=== PATIENT | male | born 1940 | race Caucasian/White ===

== ENCOUNTER 2017-12-28 17:54 | Inpatient (IN) ==
[2017-12-28] MEDS ORDERED: GLUCAGON 1 MG VIAL IM PRN (19:26)
[2017-12-28] MEDS ORDERED: DEXTROSE 50% 25 GM/50 ML VIAL IV PRN (19:26)
[2017-12-28] MEDS ORDERED: traZODone 50 MG TABLET PO PRN (19:26)
[2017-12-28] MEDS ORDERED: ONDANSETRON 4 MG/2 ML VIAL IV PRN (19:26)
[2017-12-28] MEDS ORDERED: SODIUM CHLORIDE 0.9% 1,000 ML IV PRN (21:44)
[2017-12-28] MEDS: INSULIN REGULAR 100 UNIT/ML SUBCUT SCH (23:19)
[2017-12-28] MEDS: VANCOMYCIN INJ 1,500 MG in SODIUM CHLORIDE 0.9% 500 ML IV SCH (23:26)
[2017-12-29] MEDS: PIPERACILLIN/TAZOBACTAM 3,375 MG in SODIUM CHLORIDE 0.9% 100 ML IV SCH ×2 (04:00→17:03)
[2017-12-29 06:33] LABS: Basophils % 0.3 % (0.0-0.8); Eosinophils # 0.2 10*3/uL (0.0-0.87); Hematocrit 28.4 VOL% (42.0-52.0); Hemoglobin 9.1 GM/DL (14.0-18.0); Immature Granulocytes % 0.6 %; Immature Granulocytes Absolute 0.06 #; Lymphocytes # 0.9 10*3/uL (1.4-4.0); Lymphocytes % 8.8 % (21.2-54.2); Mean Corpuscular Hemoglobin 27 PG (27-34); Mean Platelet Volume 10.3 FL (9.6-12.0); Monocytes # 1.1 10*3/uL (0.11-0.8); Monocytes % 10.2 % (1.7-12.7); Neutrophils # 8.2 10*3/uL (1.4-7.4); Neutrophils % 78.1 % (38.7-73.9); Platelet Count 170 T/CUMM (130-400); Red Blood Count 3.34 MC/CUMM (3.8-5.5); Red Cell Distribution Width 15.9 % (9.3-17.3); White Blood Count 10.5 T/CUMM (4-12)
[2017-12-29 06:43] LABS: INR 2.1
[2017-12-29 06:44] LABS: PT Patient Result 21.7 SECS
[2017-12-29 07:03] LABS: Albumin 2.4 G/DL (3.4-5.0); Bilirubin,Total 0.5 MG/DL (0.2-1.0); Calcium 6.8 MG/DL (8.5-10.1); Osmolality,Calculated 278.8 MOS/KG (273-304); Potassium 3.7 MMOL/L (3.5-5.1); Total Protein 6.7 G/DL (6.4-8.3)
[2017-12-29] MEDS: INSULIN REGULAR 100 UNIT/ML SUBCUT SCH ×4 (07:39→20:52)
[2017-12-29] MEDS ORDERED: fentaNYL 100 MCG/2 ML VIAL ONE (10:41)
[2017-12-29] MEDS ORDERED: ONDANSETRON 4 MG/2 ML VIAL ONE (10:41)
[2017-12-29] MEDS ORDERED: PROPOFOL 200 MG/20 ML VIAL IV ONE (10:41)
[2017-12-29] MEDS ORDERED: SEVOFLURANE 1 UNIT/15 MINUTE INH ONE (10:41)
[2017-12-29] MEDS: VANCOMYCIN INJ 1,500 MG in SODIUM CHLORIDE 0.9% 500 ML IV SCH ×2 (12:22→22:54)
[2017-12-29] MEDS ORDERED: FUROSEMIDE 40 MG/4 ML VIAL IV ONE (13:29)
[2017-12-29] MEDS: GABAPENTIN 600 MG TABLET PO SCH ×2 (14:17→20:51)
[2017-12-29] MEDS: WARFARIN 5 MG TABLET PO SCH (16:33)
[2017-12-29] MEDS: FAMOTIDINE 20 MG TABLET PO SCH (20:51)
[2017-12-29] MEDS: QUEtiapine 25 MG TABLET PO SCH (20:51)
[2017-12-29] MEDS: MONTELUKAST 10 MG TABLET PO SCH (20:51)
[2017-12-29] MEDS ORDERED: SODIUM CHLORIDE 0.9% 250 ML IV ONE (22:32)
[2017-12-30] MEDS: PIPERACILLIN/TAZOBACTAM 3,375 MG in SODIUM CHLORIDE 0.9% 100 ML IV SCH ×3 (01:30→16:36)
[2017-12-30 05:02] LABS: Basophils % 0.3 % (0.0-0.8); Eosinophils # 0.3 10*3/uL (0.0-0.87); Eosinophils % 2.7 % (0.00-10.9); Hematocrit 28.4 VOL% (42.0-52.0); Hemoglobin 8.8 GM/DL (14.0-18.0); Immature Granulocytes % 0.5 %; Immature Granulocytes Absolute 0.05 #; Lymphocytes # 1.1 10*3/uL (1.4-4.0); Lymphocytes % 11.1 % (21.2-54.2); Mean Corpuscular Hemoglobin 27 PG (27-34); Mean Corpuscular Volume 86.3 FL (87-102); Mean Platelet Volume 10.5 FL (9.6-12.0); Monocytes # 0.9 10*3/uL (0.11-0.8); Monocytes % 8.9 % (1.7-12.7); Neutrophils # 7.8 10*3/uL (1.4-7.4); Neutrophils % 76.5 % (38.7-73.9); Platelet Count 173 T/CUMM (130-400); Red Blood Count 3.29 MC/CUMM (3.8-5.5); Red Cell Distribution Width 15.8 % (9.3-17.3); White Blood Count 10.2 T/CUMM (4-12)
[2017-12-30 05:17] LABS: INR 2.2
[2017-12-30 05:21] LABS: INR 2.1
[2017-12-30 05:27] LABS: PT Patient Result 22.1 SECS; Partial Thromboplastin Time 60.1 SECS (0-40)
[2017-12-30 05:31] LABS: Calcium 6.7 MG/DL (8.5-10.1); Osmolality,Calculated 275.8 MOS/KG (273-304); Potassium 3.7 MMOL/L (3.5-5.1)
[2017-12-30 05:42] LABS: Calcium 6.6 MG/DL (8.5-10.1); Potassium 3.8 MMOL/L (3.5-5.1); Thyroid Stimulating Hormone 1.55 uIU/ml (0.358-3.74)
[2017-12-30] MEDS: SODIUM HYPOCHLORITE 0.25% IRRIG 473 ML BOTTLE TOP SCH (07:45)
[2017-12-30] MEDS: FLUTICASONE 50 MCG NASAL SPRAY 16 GM BOTTLE BOTH NARES SCH (09:26)
[2017-12-30] MEDS: INSULIN REGULAR 100 UNIT/ML SUBCUT SCH ×4 (09:27→20:29)
[2017-12-30] MEDS: DULoxetine 30 MG CAPSULE PO SCH (09:28)
[2017-12-30] MEDS: GABAPENTIN 600 MG TABLET PO SCH ×3 (09:28→20:28)
[2017-12-30] MEDS: FAMOTIDINE 20 MG TABLET PO SCH ×2 (09:29→20:28)
[2017-12-30] MEDS ORDERED: MAGNESIUM SULF RIDER 2 GM in PREMIX 1 EACH IV ONE (09:50)
[2017-12-30] MEDS: methIMAzole 10 MG TABLET PO SCH (13:10)
[2017-12-30] MEDS: PANTOPRAZOLE 40 MG TABLET PO SCH (13:11)
[2017-12-30] MEDS: VANCOMYCIN INJ 1,500 MG in SODIUM CHLORIDE 0.9% 500 ML IV SCH ×2 (13:13→23:02)
[2017-12-30] MEDS: WARFARIN 5 MG TABLET PO SCH (15:03)
[2017-12-30] MEDS ORDERED: MAGNESIUM SULF RIDER 4 GM in PREMIX 1 EACH IV PRN (17:02)
[2017-12-30] MEDS: QUEtiapine 25 MG TABLET PO SCH (20:28)
[2017-12-30] MEDS: MONTELUKAST 10 MG TABLET PO SCH (20:28)
[2017-12-30] MEDS ORDERED: ENOXAPARIN 40 MG/0.4 ML SYRINGE SUBCUT SCH (21:00)
[2017-12-31] MEDS: PIPERACILLIN/TAZOBACTAM 3,375 MG in SODIUM CHLORIDE 0.9% 100 ML IV SCH ×3 (01:02→16:29)
[2017-12-31 04:47] LABS: Basophils % 0.4 % (0.0-0.8); Eosinophils # 0.3 10*3/uL (0.0-0.87); Eosinophils % 3.3 % (0.00-10.9); Hematocrit 28.7 VOL% (42.0-52.0); Hemoglobin 8.9 GM/DL (14.0-18.0); INR 1.9; Immature Granulocytes % 0.7 %; Immature Granulocytes Absolute 0.07 #; Lymphocytes # 1.1 10*3/uL (1.4-4.0); Lymphocytes % 10.5 % (21.2-54.2); Mean Corpuscular Hemoglobin 27 PG (27-34); Mean Platelet Volume 10.6 FL (9.6-12.0); Monocytes # 0.8 10*3/uL (0.11-0.8); Monocytes % 7.6 % (1.7-12.7); Neutrophils # 7.7 10*3/uL (1.4-7.4); Neutrophils % 77.5 % (38.7-73.9); PT Patient Result 19.4 SECS; Platelet Count 158 T/CUMM (130-400); Red Cell Distribution Width 15.9 % (9.3-17.3)
[2017-12-31 05:05] LABS: Calcium 6.1 MG/DL (8.5-10.1); Osmolality,Calculated 275.8 MOS/KG (273-304); Potassium 3.7 MMOL/L (3.5-5.1)
[2017-12-31] MEDS: GABAPENTIN 600 MG TABLET PO SCH ×3 (09:10→21:23)
[2017-12-31] MEDS: FLUTICASONE 50 MCG NASAL SPRAY 16 GM BOTTLE BOTH NARES SCH (09:10)
[2017-12-31] MEDS: DULoxetine 30 MG CAPSULE PO SCH (09:11)
[2017-12-31] MEDS: FAMOTIDINE 20 MG TABLET PO SCH ×2 (09:11→21:23)
[2017-12-31] MEDS: INSULIN REGULAR 100 UNIT/ML SUBCUT SCH ×4 (09:11→21:23)
[2017-12-31] MEDS: methIMAzole 10 MG TABLET PO SCH (09:11)
[2017-12-31] MEDS: SODIUM HYPOCHLORITE 0.25% IRRIG 473 ML BOTTLE TOP SCH (11:30)
[2017-12-31] MEDS: VANCOMYCIN INJ 1,500 MG in SODIUM CHLORIDE 0.9% 500 ML IV SCH ×2 (12:16→23:07)
[2017-12-31] MEDS: PANTOPRAZOLE 40 MG TABLET PO SCH (12:17)
[2017-12-31] MEDS: QUEtiapine 25 MG TABLET PO SCH (21:23)
[2017-12-31] MEDS: MONTELUKAST 10 MG TABLET PO SCH (21:23)
[2018-01-01] MEDS: PIPERACILLIN/TAZOBACTAM 3,375 MG in SODIUM CHLORIDE 0.9% 100 ML IV SCH ×3 (00:55→16:21)
[2018-01-01 05:58] LABS: Basophils % 0.2 % (0.0-0.8); Eosinophils # 0.3 10*3/uL (0.0-0.87); Eosinophils % 3.6 % (0.00-10.9); Hematocrit 29.5 VOL% (42.0-52.0); Hemoglobin 9.3 GM/DL (14.0-18.0); Immature Granulocytes % 0.5 %; Immature Granulocytes Absolute 0.05 #; Lymphocytes % 11.2 % (21.2-54.2); Mean Corpuscular HGB Conc 31.5 GM/DL (32-36); Mean Corpuscular Hemoglobin 27 PG (27-34); Mean Corpuscular Volume 86.3 FL (87-102); Mean Platelet Volume 10.2 FL (9.6-12.0); Monocytes # 0.7 10*3/uL (0.11-0.8); Monocytes % 7.1 % (1.7-12.7); Neutrophils # 7.1 10*3/uL (1.4-7.4); Neutrophils % 77.4 % (38.7-73.9); Platelet Count 181 T/CUMM (130-400); Red Blood Count 3.42 MC/CUMM (3.8-5.5); Red Cell Distribution Width 15.9 % (9.3-17.3); White Blood Count 9.2 T/CUMM (4-12)
[2018-01-01 06:12] LABS: INR 1.6; PT Patient Result 16.4 SECS
[2018-01-01 06:25] LABS: Calcium 6.7 MG/DL (8.5-10.1); Osmolality,Calculated 278.7 MOS/KG (273-304); Potassium 4.2 MMOL/L (3.5-5.1)
[2018-01-01] MEDS ORDERED: DEXTROSE 50% 25 GM/50 ML VIAL IV PRN (07:33)
[2018-01-01] MEDS ORDERED: GLUCAGON 1 MG VIAL IM PRN (07:33)
[2018-01-01] MEDS: INSULIN REGULAR 100 UNIT/ML SUBCUT SCH ×4 (09:46→21:22)
[2018-01-01] MEDS: FLUTICASONE 50 MCG NASAL SPRAY 16 GM BOTTLE BOTH NARES SCH (09:50)
[2018-01-01] MEDS: methIMAzole 10 MG TABLET PO SCH (10:01)
[2018-01-01] MEDS: GABAPENTIN 600 MG TABLET PO SCH ×3 (10:02→21:28)
[2018-01-01] MEDS: FAMOTIDINE 20 MG TABLET PO SCH ×2 (10:02→21:28)
[2018-01-01] MEDS: DULoxetine 30 MG CAPSULE PO SCH (10:02)
[2018-01-01] MEDS: SODIUM HYPOCHLORITE 0.25% IRRIG 473 ML BOTTLE TOP SCH (10:03)
[2018-01-01] MEDS: ENOXAPARIN 40 MG/0.4 ML SYRINGE SUBCUT SCH (12:26)
[2018-01-01] MEDS: PANTOPRAZOLE 40 MG TABLET PO SCH (12:26)
[2018-01-01] MEDS: VANCOMYCIN INJ 1,500 MG in SODIUM CHLORIDE 0.9% 500 ML IV SCH ×2 (14:38→16:21)
[2018-01-01] MEDS: QUEtiapine 25 MG TABLET PO SCH (21:28)
[2018-01-01] MEDS: MONTELUKAST 10 MG TABLET PO SCH (21:28)
[2018-01-01] MEDS: ACETYLCYSTEINE 600 MG CAPSULE PO SCH (21:28)
[2018-01-02] MEDS: PIPERACILLIN/TAZOBACTAM 3,375 MG in SODIUM CHLORIDE 0.9% 100 ML IV SCH ×2 (07:03→10:31)
[2018-01-02] MEDS: INSULIN REGULAR 100 UNIT/ML SUBCUT SCH ×4 (08:33→22:31)
[2018-01-02] MEDS: SODIUM CHLORIDE 0.9% 1,000 ML IV SCH ×2 (09:36→10:32)
[2018-01-02] MEDS: methIMAzole 10 MG TABLET PO SCH (10:30)
[2018-01-02] MEDS: DULoxetine 30 MG CAPSULE PO SCH (10:30)
[2018-01-02] MEDS: GABAPENTIN 600 MG TABLET PO SCH ×3 (10:30→22:30)
[2018-01-02] MEDS: FAMOTIDINE 20 MG TABLET PO SCH ×2 (10:30→22:31)
[2018-01-02] MEDS: ACETYLCYSTEINE 600 MG CAPSULE PO SCH ×2 (10:30→22:31)
[2018-01-02] MEDS: FLUTICASONE 50 MCG NASAL SPRAY 16 GM BOTTLE BOTH NARES SCH (10:31)
[2018-01-02] MEDS: ENOXAPARIN 40 MG/0.4 ML SYRINGE SUBCUT SCH (10:31)
[2018-01-02] MEDS: VANCOMYCIN INJ 1,500 MG in SODIUM CHLORIDE 0.9% 500 ML IV SCH (10:32)
[2018-01-02] MEDS: SODIUM HYPOCHLORITE 0.25% IRRIG 473 ML BOTTLE TOP SCH (11:49)
[2018-01-02] MEDS: PANTOPRAZOLE 40 MG TABLET PO SCH (11:50)
[2018-01-02] MEDS ORDERED: CLINDAMYCIN INJ 900 MG in PREMIX 1 EACH IV ONE (12:07)
[2018-01-02] MEDS: cefTRIAXone 1,000 MG in SYRINGE 1 EACH IV SCH (15:50)
[2018-01-02] MEDS: AMPICILLIN/SULBACTAM 1,500 MG in SODIUM CHLORIDE 0.9% 100 ML IV SCH ×2 (15:55→22:37)
[2018-01-02] MEDS: MONTELUKAST 10 MG TABLET PO SCH (22:30)
[2018-01-02] MEDS: QUEtiapine 25 MG TABLET PO SCH (22:31)
[2018-01-03] MEDS: AMPICILLIN/SULBACTAM 1,500 MG in SODIUM CHLORIDE 0.9% 100 ML IV SCH ×4 (05:18→21:10)
[2018-01-03 06:31] LABS: Basophils % 0.4 % (0.0-0.8); Eosinophils # 0.3 10*3/uL (0.0-0.87); Eosinophils % 4.1 % (0.00-10.9); Hematocrit 28.1 VOL% (42.0-52.0); Hemoglobin 9.1 GM/DL (14.0-18.0); Immature Granulocytes % 0.4 %; Immature Granulocytes Absolute 0.03 #; Lymphocytes # 0.8 10*3/uL (1.4-4.0); Lymphocytes % 10.7 % (21.2-54.2); Mean Corpuscular HGB Conc 32.4 GM/DL (32-36); Mean Corpuscular Hemoglobin 27 PG (27-34); Mean Corpuscular Volume 84.4 FL (87-102); Mean Platelet Volume 10.3 FL (9.6-12.0); Monocytes # 0.5 10*3/uL (0.11-0.8); Monocytes % 7.2 % (1.7-12.7); Neutrophils # 5.6 10*3/uL (1.4-7.4); Neutrophils % 77.2 % (38.7-73.9); Platelet Count 209 T/CUMM (130-400); Red Blood Count 3.33 MC/CUMM (3.8-5.5); Red Cell Distribution Width 15.6 % (9.3-17.3); White Blood Count 7.3 T/CUMM (4-12)
[2018-01-03 06:39] LABS: INR 1.4; PT Patient Result 14.1 SECS
[2018-01-03 06:40] LABS: Partial Thromboplastin Time 42.1 SECS (0-40)
[2018-01-03] MEDS ORDERED: HEPARIN/NACL 0.9% 2 UNITS/ML 500 ML IV ONE ×2 (06:41→15:44)
[2018-01-03 06:54] LABS: Calcium 7.4 MG/DL (8.5-10.1); Osmolality,Calculated 277.5 MOS/KG (273-304); Potassium 3.5 MMOL/L (3.5-5.1)
[2018-01-03] MEDS: INSULIN REGULAR 100 UNIT/ML SUBCUT SCH ×4 (08:18→21:10)
[2018-01-03] MEDS: SODIUM CHLORIDE 0.9% 1,000 ML IV SCH ×3 (08:18→17:18)
[2018-01-03] MEDS ORDERED: ceFAZolin 1,000 MG VIAL ONE (08:28)
[2018-01-03] MEDS ORDERED: HEPARIN 5,000 UNIT/1 ML VIAL ONE (08:28)
[2018-01-03] MEDS ORDERED: THROMBIN TOPICAL (RECOMBINANT) 5,000 UNIT VIAL TOP ONE (08:28)
[2018-01-03] MEDS ORDERED: NITROGLYCERIN DRIP 0 MG/0 ML BOTTLE IV ONE (09:00)
[2018-01-03] MEDS ORDERED: CLINDAMYCIN INJ 50 ML IV ONE (09:07)
[2018-01-03] MEDS ORDERED: CLINDAMYCIN INJ 900 MG in PREMIX 1 EACH IV ONE (10:00)
[2018-01-03] MEDS: SODIUM HYPOCHLORITE 0.25% IRRIG 473 ML BOTTLE TOP SCH (11:39)
[2018-01-03] MEDS: DULoxetine 30 MG CAPSULE PO SCH (11:39)
[2018-01-03] MEDS: GABAPENTIN 600 MG TABLET PO SCH ×3 (11:40→21:10)
[2018-01-03] MEDS: methIMAzole 10 MG TABLET PO SCH (11:40)
[2018-01-03] MEDS: FLUTICASONE 50 MCG NASAL SPRAY 16 GM BOTTLE BOTH NARES SCH (11:40)
[2018-01-03] MEDS: FAMOTIDINE 20 MG TABLET PO SCH ×2 (11:40→21:10)
[2018-01-03] MEDS: ACETYLCYSTEINE 600 MG CAPSULE PO SCH (11:40)
[2018-01-03] MEDS: ENOXAPARIN 40 MG/0.4 ML SYRINGE SUBCUT SCH (11:41)
[2018-01-03 13:41] LABS: ABG Base Excess 4.7 MMOL/L (-2.5-2.5); ABG HCO3 28.7 MMOL/L (20-26); ABG Oxygen Saturation 99.5 % (95-100); ABG PCO2 40.2 MM HG (35-48); ABG PH 7.463 (7.35-7.45); ABG TCO2 26.4 MMOL/L (23-27)
[2018-01-03] MEDS: PANTOPRAZOLE 40 MG TABLET PO SCH (13:59)
[2018-01-03] MEDS ORDERED: MIDAZOLAM 2 MG/2 ML VIAL ONE (14:02)
[2018-01-03] MEDS ORDERED: fentaNYL 100 MCG/2 ML VIAL ONE (14:02)
[2018-01-03 15:31] LABS: Apearance,Urine CLEAR (Clear); Bacteria,Urine Occasional /HPF (Few); Bilirubin,Urine Negative (Negative); Blood, Urine Negative (Negative); Glucose,Urine (UA) Negative (Negative); Hyaline Casts,Urine 1 /LPF (0-3); Ketones,Urine 5 mg/dL (Negative); Mucus,Urine Occasional /LPF (Occasional); Nitrite,Urine Negative (Negative); Protein,Urine Negative; RBC,Urine 1 /HPF (0-4); Urine Color Straw (Yellow); Urine Specific Gravity 1.005 (1.001-1.035); Urine Urobilinogen < 2.0 EU/DL (0.2-1.0); WBC,Urine <1 /HPF (0-6)
[2018-01-03] MEDS ORDERED: HEPARIN 10,000 UNIT/10 ML VIAL ONE (15:44)
[2018-01-03] MEDS ORDERED: SEVOFLURANE 1 UNIT/15 MINUTE INH ONE (15:44)
[2018-01-03] MEDS ORDERED: ETOMIDATE 40 MG/20 ML VIAL IV ONE (15:45)
[2018-01-03] MEDS ORDERED: SODIUM CHLORIDE 0.9% 100 ML IV ONE (15:45)
[2018-01-03] MEDS ORDERED: PHENYLEPHRINE 10 MG/1 ML VIAL IV ONE (15:45)
[2018-01-03] MEDS ORDERED: LACTATED RINGERS 1,000 ML IV ONE (15:45)
[2018-01-03] MEDS ORDERED: ROCURONIUM 100 MG/10 ML VIAL IV ONE (15:45)
[2018-01-03 16:13] LABS: ABG Base Excess 5.2 MMOL/L (-2.5-2.5); ABG HCO3 29.1 MMOL/L (20-26); ABG PCO2 46.6 MM HG (35-48); ABG PH 7.421 (7.35-7.45); ABG PO2 78.7 MM HG (80-95); Glucose Heart Surgery 209 MG/DL (74-106); Hematocrit Heart Surgery 27.4 PERCENT (42-52); Hemoglobin Heart Surgery 8.8 G/DL (14.0-18.0); Potassium Heart/CVR 3.5 MMOL/L (3.5-5.1)
[2018-01-03] MEDS: cefTRIAXone 1,000 MG in SYRINGE 1 EACH IV SCH (17:37)
[2018-01-03] MEDS: MAGNESIUM SULF RIDER 2 GM in PREMIX 1 EACH IV PRN (17:37)
[2018-01-03 17:51] LABS: Basophils % 0.3 % (0.0-0.8); Eosinophils # 0.2 10*3/uL (0.0-0.87); Eosinophils % 1.6 % (0.00-10.9); Hematocrit 27.6 VOL% (42.0-52.0); Hemoglobin 8.8 GM/DL (14.0-18.0); Immature Granulocytes % 0.5 %; Immature Granulocytes Absolute 0.05 #; Lymphocytes # 0.8 10*3/uL (1.4-4.0); Lymphocytes % 7.1 % (21.2-54.2); Mean Corpuscular HGB Conc 31.9 GM/DL (32-36); Mean Corpuscular Hemoglobin 27 PG (27-34); Mean Corpuscular Volume 85.7 FL (87-102); Mean Platelet Volume 10.5 FL (9.6-12.0); Monocytes # 0.6 10*3/uL (0.11-0.8); Neutrophils # 9.4 10*3/uL (1.4-7.4); Neutrophils % 85.5 % (38.7-73.9); Platelet Count 218 T/CUMM (130-400); Red Blood Count 3.22 MC/CUMM (3.8-5.5); Red Cell Distribution Width 15.6 % (9.3-17.3)
[2018-01-03 18:13] LABS: Calcium 7.3 MG/DL (8.5-10.1); Osmolality,Calculated 275.8 MOS/KG (273-304); Potassium 3.6 MMOL/L (3.5-5.1)
[2018-01-03] MEDS: MONTELUKAST 10 MG TABLET PO SCH (21:10)
[2018-01-03] MEDS: QUEtiapine 25 MG TABLET PO SCH (21:10)
[2018-01-03] MEDS ORDERED: SODIUM CHLORIDE 0.9% 1,000 ML IV PRN (22:13)
[2018-01-03] MEDS ORDERED: SODIUM CHLORIDE 0.9% 500 ML IV ONE (22:13)
[2018-01-04] MEDS: SODIUM CHLORIDE 0.9% 1,000 ML IV SCH ×3 (00:30→08:45)
[2018-01-04] MEDS: AMPICILLIN/SULBACTAM 1,500 MG in SODIUM CHLORIDE 0.9% 100 ML IV SCH ×4 (03:35→21:34)
[2018-01-04 04:57] LABS: Basophils % 0.4 % (0.0-0.8); Eosinophils # 0.3 10*3/uL (0.0-0.87); Eosinophils % 3.2 % (0.00-10.9); Hematocrit 27.8 VOL% (42.0-52.0); Hemoglobin 8.8 GM/DL (14.0-18.0); Immature Granulocytes % 0.6 %; Immature Granulocytes Absolute 0.05 #; Lymphocytes # 0.9 10*3/uL (1.4-4.0); Lymphocytes % 10.6 % (21.2-54.2); Mean Corpuscular HGB Conc 31.7 GM/DL (32-36); Mean Corpuscular Hemoglobin 28 PG (27-34); Mean Corpuscular Volume 87.4 FL (87-102); Mean Platelet Volume 10.5 FL (9.6-12.0); Monocytes # 0.6 10*3/uL (0.11-0.8); Monocytes % 7.7 % (1.7-12.7); Neutrophils # 6.3 10*3/uL (1.4-7.4); Neutrophils % 77.5 % (38.7-73.9); Platelet Count 199 T/CUMM (130-400); Red Blood Count 3.18 MC/CUMM (3.8-5.5); Red Cell Distribution Width 15.2 % (9.3-17.3); White Blood Count 8.1 T/CUMM (4-12)
[2018-01-04 05:28] LABS: Calcium 6.9 MG/DL (8.5-10.1); Osmolality,Calculated 280.4 MOS/KG (273-304); Potassium 3.4 MMOL/L (3.5-5.1)
[2018-01-04] MEDS: MAGNESIUM SULF RIDER 2 GM in PREMIX 1 EACH IV PRN (06:03)
[2018-01-04] MEDS: INSULIN REGULAR 100 UNIT/ML SUBCUT SCH ×4 (08:38→21:33)
[2018-01-04] MEDS: FAMOTIDINE 20 MG TABLET PO SCH ×2 (08:39→21:29)
[2018-01-04] MEDS: DULoxetine 30 MG CAPSULE PO SCH (08:39)
[2018-01-04] MEDS: GABAPENTIN 600 MG TABLET PO SCH ×3 (08:39→21:29)
[2018-01-04] MEDS: FLUTICASONE 50 MCG NASAL SPRAY 16 GM BOTTLE BOTH NARES SCH (08:40)
[2018-01-04] MEDS: methIMAzole 10 MG TABLET PO SCH (08:40)
[2018-01-04] MEDS ORDERED: GLUCAGON 1 MG VIAL IM PRN (08:57)
[2018-01-04] MEDS ORDERED: DEXTROSE 50% 25 GM/50 ML VIAL IV PRN (08:57)
[2018-01-04] MEDS: POTASSIUM CHLORIDE 20 MEQ TABLET PO PRN ×2 (10:02→11:42)
[2018-01-04] MEDS: SODIUM HYPOCHLORITE 0.25% IRRIG 473 ML BOTTLE TOP SCH (10:45)
[2018-01-04] MEDS: ENOXAPARIN 40 MG/0.4 ML SYRINGE SUBCUT SCH (10:48)
[2018-01-04] MEDS: METOPROLOL TARTRATE 25 MG TABLET PO SCH ×2 (10:48→22:34)
[2018-01-04] MEDS: PANTOPRAZOLE 40 MG TABLET PO SCH (11:42)
[2018-01-04] MEDS: cefTRIAXone 1,000 MG in SYRINGE 1 EACH IV SCH (15:44)
[2018-01-04] MEDS: CLOPIDOGREL 75 MG TABLET PO SCH (15:44)
[2018-01-04] MEDS: POTASSIUM CHLORIDE 20 MEQ TABLET PO SCH ×2 (15:44→21:32)
[2018-01-04] MEDS: MAGNESIUM GLUCONATE 500 MG TABLET PO SCH (18:29)
[2018-01-04] MEDS: QUEtiapine 25 MG TABLET PO SCH (21:29)
[2018-01-04] MEDS: MONTELUKAST 10 MG TABLET PO SCH (21:29)
[2018-01-05] MEDS: AMPICILLIN/SULBACTAM 1,500 MG in SODIUM CHLORIDE 0.9% 100 ML IV SCH ×5 (03:13→22:53)
[2018-01-05] MEDS: INSULIN REGULAR 100 UNIT/ML SUBCUT SCH ×4 (08:47→22:52)
[2018-01-05] MEDS: FAMOTIDINE 20 MG TABLET PO SCH ×2 (08:48→22:53)
[2018-01-05] MEDS: CLOPIDOGREL 75 MG TABLET PO SCH (08:48)
[2018-01-05] MEDS: METOPROLOL TARTRATE 25 MG TABLET PO SCH ×2 (08:48→22:53)
[2018-01-05] MEDS: GABAPENTIN 600 MG TABLET PO SCH ×3 (08:49→22:52)
[2018-01-05] MEDS: MAGNESIUM GLUCONATE 500 MG TABLET PO SCH (08:49)
[2018-01-05] MEDS: DULoxetine 30 MG CAPSULE PO SCH (08:49)
[2018-01-05] MEDS: methIMAzole 10 MG TABLET PO SCH (08:50)
[2018-01-05] MEDS: POTASSIUM CHLORIDE 20 MEQ TABLET PO SCH ×2 (08:50→22:52)
[2018-01-05] MEDS: FLUTICASONE 50 MCG NASAL SPRAY 16 GM BOTTLE BOTH NARES SCH (08:51)
[2018-01-05] MEDS ORDERED: AMPICILLIN/SULBACTAM 1,500 MG VIAL IM SCH (10:30)
[2018-01-05] MEDS ORDERED: AMPICILLIN/SULBACTAM 1,500 MG VIAL IV SCH (10:42)
[2018-01-05] MEDS: PANTOPRAZOLE 40 MG TABLET PO SCH (11:15)
[2018-01-05] MEDS: ENOXAPARIN 40 MG/0.4 ML SYRINGE SUBCUT SCH (11:17)
[2018-01-05] MEDS: VANCOMYCIN INJ 1,500 MG in SODIUM CHLORIDE 0.9% 500 ML IV SCH (12:38)
[2018-01-05] MEDS: WARFARIN 5 MG TABLET PO SCH (16:10)
[2018-01-05] MEDS: ACETAMINOPHEN 325 MG TABLET PO PRN (18:02)
[2018-01-05] MEDS: MONTELUKAST 10 MG TABLET PO SCH (22:52)
[2018-01-05] MEDS: QUEtiapine 25 MG TABLET PO SCH (22:53)
[2018-01-06] MEDS: VANCOMYCIN INJ 1,500 MG in SODIUM CHLORIDE 0.9% 500 ML IV SCH ×2 (00:20→14:18)
[2018-01-06 05:41] LABS: Osmolality,Calculated 278.8 MOS/KG (273-304); Potassium 4.1 MMOL/L (3.5-5.1)
[2018-01-06 05:44] LABS: INR 1.2; PT Patient Result 12.6 SECS
[2018-01-06] MEDS: AMPICILLIN/SULBACTAM 1,500 MG in SODIUM CHLORIDE 0.9% 100 ML IV SCH ×4 (05:54→23:55)
[2018-01-06] MEDS: INSULIN REGULAR 100 UNIT/ML SUBCUT SCH ×4 (09:51→20:58)
[2018-01-06] MEDS: DULoxetine 30 MG CAPSULE PO SCH (09:53)
[2018-01-06] MEDS: FAMOTIDINE 20 MG TABLET PO SCH ×2 (09:53→20:54)
[2018-01-06] MEDS: methIMAzole 10 MG TABLET PO SCH (09:53)
[2018-01-06] MEDS: MAGNESIUM GLUCONATE 500 MG TABLET PO SCH (09:54)
[2018-01-06] MEDS: FLUTICASONE 50 MCG NASAL SPRAY 16 GM BOTTLE BOTH NARES SCH (09:54)
[2018-01-06] MEDS: POTASSIUM CHLORIDE 20 MEQ TABLET PO SCH ×2 (09:55→20:55)
[2018-01-06] MEDS: GABAPENTIN 600 MG TABLET PO SCH ×3 (09:55→20:54)
[2018-01-06] MEDS: METOPROLOL TARTRATE 25 MG TABLET PO SCH ×2 (09:55→20:55)
[2018-01-06] MEDS: CLOPIDOGREL 75 MG TABLET PO SCH (09:56)
[2018-01-06] MEDS: ENOXAPARIN 40 MG/0.4 ML SYRINGE SUBCUT SCH (13:19)
[2018-01-06] MEDS: PANTOPRAZOLE 40 MG TABLET PO SCH (13:19)
[2018-01-06] MEDS: WARFARIN 5 MG TABLET PO SCH (14:23)
[2018-01-06] MEDS: QUEtiapine 25 MG TABLET PO SCH (20:54)
[2018-01-06] MEDS: ACETAMINOPHEN 325 MG TABLET PO PRN (20:55)
[2018-01-07] MEDS: MONTELUKAST 10 MG TABLET PO SCH ×2 (00:27→21:31)
[2018-01-07] MEDS: VANCOMYCIN INJ 1,500 MG in SODIUM CHLORIDE 0.9% 500 ML IV SCH ×2 (00:27→06:15)
[2018-01-07] MEDS: AMPICILLIN/SULBACTAM 1,500 MG in SODIUM CHLORIDE 0.9% 100 ML IV SCH ×4 (05:14→23:57)
[2018-01-07] MEDS: INSULIN REGULAR 100 UNIT/ML SUBCUT SCH ×4 (09:31→21:32)
[2018-01-07] MEDS: MAGNESIUM GLUCONATE 500 MG TABLET PO SCH (09:32)
[2018-01-07] MEDS: methIMAzole 10 MG TABLET PO SCH (09:33)
[2018-01-07] MEDS: DULoxetine 30 MG CAPSULE PO SCH (09:33)
[2018-01-07] MEDS: GABAPENTIN 600 MG TABLET PO SCH ×3 (09:33→21:31)
[2018-01-07] MEDS: FAMOTIDINE 20 MG TABLET PO SCH ×2 (09:33→21:32)
[2018-01-07] MEDS: FLUTICASONE 50 MCG NASAL SPRAY 16 GM BOTTLE BOTH NARES SCH (09:34)
[2018-01-07] MEDS: POTASSIUM CHLORIDE 20 MEQ TABLET PO SCH ×2 (09:34→21:31)
[2018-01-07] MEDS: METOPROLOL TARTRATE 25 MG TABLET PO SCH ×2 (09:34→21:31)
[2018-01-07] MEDS: CLOPIDOGREL 75 MG TABLET PO SCH (09:34)
[2018-01-07] MEDS: ENOXAPARIN 40 MG/0.4 ML SYRINGE SUBCUT SCH (12:45)
[2018-01-07] MEDS: PANTOPRAZOLE 40 MG TABLET PO SCH (12:48)
[2018-01-07] MEDS: WARFARIN 5 MG TABLET PO SCH (14:57)
[2018-01-07] MEDS: ACETAMINOPHEN 325 MG TABLET PO PRN ×2 (14:58→23:57)
[2018-01-07] MEDS: QUEtiapine 25 MG TABLET PO SCH (21:31)
[2018-01-08] MEDS: VANCOMYCIN INJ 1,500 MG in SODIUM CHLORIDE 0.9% 500 ML IV SCH ×2 (00:30→18:42)
[2018-01-08] MEDS: AMPICILLIN/SULBACTAM 1,500 MG in SODIUM CHLORIDE 0.9% 100 ML IV SCH ×3 (04:53→16:58)
[2018-01-08] MEDS: ACETAMINOPHEN 325 MG TABLET PO PRN (06:43)
[2018-01-08] MEDS: METOPROLOL TARTRATE 25 MG TABLET PO SCH ×2 (09:01→20:58)
[2018-01-08] MEDS: GABAPENTIN 600 MG TABLET PO SCH ×3 (09:01→20:58)
[2018-01-08] MEDS: methIMAzole 10 MG TABLET PO SCH (09:01)
[2018-01-08] MEDS: MAGNESIUM GLUCONATE 500 MG TABLET PO SCH (09:02)
[2018-01-08] MEDS: POTASSIUM CHLORIDE 20 MEQ TABLET PO SCH ×2 (09:02→20:58)
[2018-01-08] MEDS: CLOPIDOGREL 75 MG TABLET PO SCH (09:03)
[2018-01-08] MEDS: FAMOTIDINE 20 MG TABLET PO SCH ×2 (09:03→20:58)
[2018-01-08] MEDS: FLUTICASONE 50 MCG NASAL SPRAY 16 GM BOTTLE BOTH NARES SCH (09:07)
[2018-01-08] MEDS: DULoxetine 30 MG CAPSULE PO SCH (09:07)
[2018-01-08] MEDS: INSULIN REGULAR 100 UNIT/ML SUBCUT SCH ×4 (09:08→20:59)
[2018-01-08] MEDS: ENOXAPARIN 40 MG/0.4 ML SYRINGE SUBCUT SCH (11:51)
[2018-01-08] MEDS: PANTOPRAZOLE 40 MG TABLET PO SCH (11:53)
[2018-01-08 13:59] LABS: INR 1.5; PT Patient Result 16.1 SECS
[2018-01-08] MEDS: WARFARIN 5 MG TABLET PO SCH (13:59)
[2018-01-08] MEDS: MONTELUKAST 10 MG TABLET PO SCH (20:58)
[2018-01-08] MEDS: QUEtiapine 25 MG TABLET PO SCH (20:58)
[2018-01-09] MEDS: AMPICILLIN/SULBACTAM 1,500 MG in SODIUM CHLORIDE 0.9% 100 ML IV SCH ×5 (00:56→23:38)
[2018-01-09 06:28] LABS: Basophils # 0.1 10*3/uL (0.0-0.2); Basophils % 0.8 % (0.0-0.8); Eosinophils # 0.3 10*3/uL (0.0-0.87); Eosinophils % 3.5 % (0.00-10.9); Hematocrit 32.5 VOL% (42.0-52.0); Hemoglobin 10.5 GM/DL (14.0-18.0); Immature Granulocytes % 1.3 %; Immature Granulocytes Absolute 0.11 #; Lymphocytes # 1.2 10*3/uL (1.4-4.0); Lymphocytes % 14.5 % (21.2-54.2); Mean Corpuscular HGB Conc 32.3 GM/DL (32-36); Mean Corpuscular Hemoglobin 28 PG (27-34); Mean Corpuscular Volume 86.7 FL (87-102); Mean Platelet Volume 10.1 FL (9.6-12.0); Monocytes # 0.7 10*3/uL (0.11-0.8); Monocytes % 8.6 % (1.7-12.7); Neutrophils # 6.1 10*3/uL (1.4-7.4); Neutrophils % 71.3 % (38.7-73.9); Platelet Count 300 T/CUMM (130-400); Red Blood Count 3.75 MC/CUMM (3.8-5.5); Red Cell Distribution Width 16.7 % (9.3-17.3); White Blood Count 8.5 T/CUMM (4-12)
[2018-01-09 06:34] LABS: INR 1.7; PT Patient Result 17.2 SECS
[2018-01-09 07:00] LABS: Calcium 8.5 MG/DL (8.5-10.1); Potassium 4.8 MMOL/L (3.5-5.1)
[2018-01-09] MEDS: MAGNESIUM GLUCONATE 500 MG TABLET PO SCH (08:04)
[2018-01-09] MEDS: FAMOTIDINE 20 MG TABLET PO SCH ×2 (08:05→22:16)
[2018-01-09] MEDS: METOPROLOL TARTRATE 25 MG TABLET PO SCH ×2 (08:06→22:17)
[2018-01-09] MEDS: POTASSIUM CHLORIDE 20 MEQ TABLET PO SCH ×2 (08:06→22:16)
[2018-01-09] MEDS: CLOPIDOGREL 75 MG TABLET PO SCH (08:06)
[2018-01-09] MEDS: GABAPENTIN 600 MG TABLET PO SCH ×3 (08:06→22:15)
[2018-01-09] MEDS: methIMAzole 10 MG TABLET PO SCH (08:07)
[2018-01-09] MEDS: DULoxetine 30 MG CAPSULE PO SCH (08:07)
[2018-01-09] MEDS: INSULIN REGULAR 100 UNIT/ML SUBCUT SCH ×4 (08:08→22:16)
[2018-01-09] MEDS: FLUTICASONE 50 MCG NASAL SPRAY 16 GM BOTTLE BOTH NARES SCH (08:09)
[2018-01-09] MEDS: PANTOPRAZOLE 40 MG TABLET PO SCH (11:51)
[2018-01-09] MEDS: ENOXAPARIN 40 MG/0.4 ML SYRINGE SUBCUT SCH (11:57)
[2018-01-09] MEDS: WARFARIN 5 MG TABLET PO SCH (13:47)
[2018-01-09] MEDS: VANCOMYCIN INJ 1,250 MG in SODIUM CHLORIDE 0.9% 250 ML IV SCH (13:48)
[2018-01-09] MEDS: QUEtiapine 25 MG TABLET PO SCH (22:16)
[2018-01-09] MEDS: MONTELUKAST 10 MG TABLET PO SCH (22:16)
[2018-01-10] MEDS: AMPICILLIN/SULBACTAM 1,500 MG in SODIUM CHLORIDE 0.9% 100 ML IV SCH ×2 (05:00→14:55)
[2018-01-10] MEDS: VANCOMYCIN INJ 1,250 MG in SODIUM CHLORIDE 0.9% 250 ML IV SCH (06:43)
[2018-01-10 07:32] LABS: Calcium 8.1 MG/DL (8.5-10.1); Osmolality,Calculated 278.8 MOS/KG (273-304); Potassium 4.3 MMOL/L (3.5-5.1)
[2018-01-10] MEDS: MAGNESIUM GLUCONATE 500 MG TABLET PO SCH (08:21)
[2018-01-10] MEDS: FAMOTIDINE 20 MG TABLET PO SCH (08:21)
[2018-01-10] MEDS: CLOPIDOGREL 75 MG TABLET PO SCH (08:21)
[2018-01-10] MEDS: GABAPENTIN 600 MG TABLET PO SCH ×2 (08:21→14:54)
[2018-01-10] MEDS: DULoxetine 30 MG CAPSULE PO SCH (08:21)
[2018-01-10] MEDS: methIMAzole 10 MG TABLET PO SCH (08:22)
[2018-01-10] MEDS: POTASSIUM CHLORIDE 20 MEQ TABLET PO SCH (08:22)
[2018-01-10] MEDS: INSULIN REGULAR 100 UNIT/ML SUBCUT SCH ×3 (08:23→16:43)
[2018-01-10] MEDS: FLUTICASONE 50 MCG NASAL SPRAY 16 GM BOTTLE BOTH NARES SCH (08:24)
[2018-01-10] MEDS: METOPROLOL TARTRATE 25 MG TABLET PO SCH (08:27)
[2018-01-10] MEDS: WARFARIN 5 MG TABLET PO SCH (14:54)
[2018-01-10] MEDS: ENOXAPARIN 40 MG/0.4 ML SYRINGE SUBCUT SCH (14:54)
[2018-01-10] MEDS: PANTOPRAZOLE 40 MG TABLET PO SCH (14:56)
[2018-01-11] MEDS: POTASSIUM CHLORIDE 20 MEQ TABLET PO SCH ×3 (00:11→21:57)
[2018-01-11] MEDS: FAMOTIDINE 20 MG TABLET PO SCH ×3 (00:11→21:57)
[2018-01-11] MEDS: GABAPENTIN 600 MG TABLET PO SCH ×4 (00:11→21:57)
[2018-01-11] MEDS: QUEtiapine 25 MG TABLET PO SCH ×2 (00:11→21:57)
[2018-01-11] MEDS: METOPROLOL TARTRATE 25 MG TABLET PO SCH ×3 (00:11→21:57)
[2018-01-11] MEDS: MONTELUKAST 10 MG TABLET PO SCH ×2 (00:12→21:57)
[2018-01-11] MEDS: INSULIN REGULAR 100 UNIT/ML SUBCUT SCH ×5 (00:20→22:05)
[2018-01-11] MEDS: AMPICILLIN/SULBACTAM 1,500 MG in SODIUM CHLORIDE 0.9% 100 ML IV SCH ×2 (00:20→03:00)
[2018-01-11] MEDS: VANCOMYCIN INJ 1,250 MG in SODIUM CHLORIDE 0.9% 250 ML IV SCH (01:30)
[2018-01-11 05:27] LABS: Basophils # 0.1 10*3/uL (0.0-0.2); Basophils % 0.8 % (0.0-0.8); Eosinophils # 0.3 10*3/uL (0.0-0.87); Hematocrit 30.6 VOL% (42.0-52.0); Hemoglobin 10.2 GM/DL (14.0-18.0); Immature Granulocytes % 0.9 %; Immature Granulocytes Absolute 0.08 #; Lymphocytes # 1.4 10*3/uL (1.4-4.0); Mean Corpuscular HGB Conc 33.3 GM/DL (32-36); Mean Corpuscular Hemoglobin 29 PG (27-34); Mean Platelet Volume 10.3 FL (9.6-12.0); Monocytes # 0.7 10*3/uL (0.11-0.8); Monocytes % 8.3 % (1.7-12.7); Neutrophils # 6.3 10*3/uL (1.4-7.4); Platelet Count 314 T/CUMM (130-400); Red Blood Count 3.56 MC/CUMM (3.8-5.5); Red Cell Distribution Width 16.6 % (9.3-17.3); White Blood Count 8.9 T/CUMM (4-12)
[2018-01-11 05:53] LABS: Osmolality,Calculated 277.1 MOS/KG (273-304); Potassium 4.4 MMOL/L (3.5-5.1)
[2018-01-11] MEDS ORDERED: MAGNESIUM SULF RIDER 1 GM in PREMIX 1 EACH IV ONE (08:05)
[2018-01-11] MEDS: cefTRIAXone 1,000 MG in SODIUM CHLORIDE 0.9% 100 ML IV SCH (09:31)
[2018-01-11] MEDS: FLUTICASONE 50 MCG NASAL SPRAY 16 GM BOTTLE BOTH NARES SCH (09:31)
[2018-01-11] MEDS: MAGNESIUM GLUCONATE 500 MG TABLET PO SCH (09:33)
[2018-01-11] MEDS: methIMAzole 10 MG TABLET PO SCH (09:33)
[2018-01-11] MEDS: CLOPIDOGREL 75 MG TABLET PO SCH (09:33)
[2018-01-11] MEDS: DULoxetine 30 MG CAPSULE PO SCH (09:33)
[2018-01-11] MEDS: ENOXAPARIN 40 MG/0.4 ML SYRINGE SUBCUT SCH (12:11)
[2018-01-11] MEDS: WARFARIN 5 MG TABLET PO SCH (12:31)
[2018-01-11] MEDS: PANTOPRAZOLE 40 MG TABLET PO SCH (12:31)
[2018-01-12] MEDS ORDERED: VANCOMYCIN INJ 1,250 MG in SODIUM CHLORIDE 0.9% 250 ML IV SCH (01:30)
[2018-01-12] MEDS: cefTRIAXone 1,000 MG in SODIUM CHLORIDE 0.9% 100 ML IV SCH (09:06)
[2018-01-12] MEDS: INSULIN REGULAR 100 UNIT/ML SUBCUT SCH ×2 (09:07→12:28)
[2018-01-12] MEDS: methIMAzole 10 MG TABLET PO SCH (09:07)
[2018-01-12] MEDS: CLOPIDOGREL 75 MG TABLET PO SCH (09:07)
[2018-01-12] MEDS: FAMOTIDINE 20 MG TABLET PO SCH (09:07)
[2018-01-12] MEDS: GABAPENTIN 600 MG TABLET PO SCH (09:08)
[2018-01-12] MEDS: DULoxetine 30 MG CAPSULE PO SCH (09:08)
[2018-01-12] MEDS: METOPROLOL TARTRATE 25 MG TABLET PO SCH (09:08)
[2018-01-12] MEDS: POTASSIUM CHLORIDE 20 MEQ TABLET PO SCH (09:08)
[2018-01-12] MEDS: FLUTICASONE 50 MCG NASAL SPRAY 16 GM BOTTLE BOTH NARES SCH (09:08)
[2018-01-12] MEDS: MAGNESIUM GLUCONATE 500 MG TABLET PO SCH (09:08)
[2018-01-12] MEDS: ENOXAPARIN 40 MG/0.4 ML SYRINGE SUBCUT SCH (09:51)
[2018-01-12 11:28] VITALS: BP 150/63
[2018-01-12] MEDS: PANTOPRAZOLE 40 MG TABLET PO SCH (12:29)
== END 2018-01-12 15:00 | disposition home health service (06) | DRG 253 ==
LOC: EDBD → EDUNIT# → N.ED 17:54 → N.EDINP 19:26 → SUATTDRO 19:26 → N.3E 20:17 → N.ICU 01-03 15:02 → N.3E 01-04 13:32
PROVIDERS: ADMIT Internal Medicine; ATTEND Internal Medicine

== ENCOUNTER 2018-01-24 08:36 | Observation (INO) ==
[2018-01-24 10:22] LABS: Basophils % 0.3 % (0.0-0.8); Eosinophils # 0.3 10*3/uL (0.0-0.87); Eosinophils % 2.9 % (0.00-10.9); Hematocrit 35.4 VOL% (42.0-52.0); Hemoglobin 11.2 GM/DL (14.0-18.0); Immature Granulocytes % 1.2 %; Immature Granulocytes Absolute 0.11 #; Lymphocytes % 10.7 % (21.2-54.2); Mean Corpuscular HGB Conc 31.6 GM/DL (32-36); Mean Corpuscular Hemoglobin 28 PG (27-34); Mean Corpuscular Volume 88.7 FL (87-102); Mean Platelet Volume 10.5 FL (9.6-12.0); Monocytes # 0.5 10*3/uL (0.11-0.8); Monocytes % 5.3 % (1.7-12.7); Neutrophils # 7.5 10*3/uL (1.4-7.4); Neutrophils % 79.6 % (38.7-73.9); Platelet Count 164 T/CUMM (130-400); Red Blood Count 3.99 MC/CUMM (3.8-5.5); Red Cell Distribution Width 16.5 % (9.3-17.3); White Blood Count 9.4 T/CUMM (4-12)
[2018-01-24 10:58] LABS: Alanine Aminotransferase 13 U/L (16-61); Alkaline Phosphatase 108 U/L (45-117); Aspartate Amino Transferase 24 U/L (0-37)
[2018-01-24 10:59] LABS: Bilirubin,Total < 0.39 MG/DL (0.2-1.0); Blood Urea Nitrogen 30 MG/DL (7-18); Glucose 135 MG/DL (74-106); Osmolality,Calculated 277.1 MOS/KG (273-304); Potassium 4.2 MMOL/L (3.5-5.1); Sodium 135 MMOL/L (136-145); Total Protein 8.7 G/DL (6.4-8.3)
[2018-01-24] MEDS ORDERED: ONDANSETRON 4 MG/2 ML VIAL IV PRN (13:34)
[2018-01-24] MEDS ORDERED: ACETAMINOPHEN 325 MG TABLET PO PRN (13:34)
[2018-01-24] MEDS ORDERED: GLUCAGON 1 MG VIAL IM PRN ×2 (13:34→18:14)
[2018-01-24] MEDS ORDERED: DOCUSATE SODIUM 100 MG CAPSULE PO PRN (13:34)
[2018-01-24] MEDS ORDERED: DEXTROSE 50% 25 GM/50 ML VIAL IV PRN ×2 (13:34→18:14)
[2018-01-24] MEDS ORDERED: HALOPERIDOL 5 MG/ML AMP IV ONE (16:07)
[2018-01-24 18:54] LABS: INR 1.1; PT Patient Result 11.9 SECS
[2018-01-24] MEDS: QUEtiapine 25 MG TABLET PO SCH (21:16)
[2018-01-24] MEDS: ENOXAPARIN 30 MG/0.3 ML SYRINGE SUBCUT SCH (21:16)
[2018-01-24] MEDS: MONTELUKAST 10 MG TABLET PO SCH (21:16)
[2018-01-24] MEDS: FAMOTIDINE 20 MG TABLET PO SCH (21:16)
[2018-01-24] MEDS: INSULIN LISPRO 100 UNIT/ML SUBCUT SCH (22:08)
[2018-01-25] MEDS ORDERED: SODIUM CHLORIDE 0.9% 250 ML IV ONE (00:42)
[2018-01-25 04:45] LABS: Basophils % 0.6 % (0.0-0.8); Eosinophils # 0.4 10*3/uL (0.0-0.87); Eosinophils % 5.5 % (0.00-10.9); Hematocrit 32.1 VOL% (42.0-52.0); Hemoglobin 9.9 GM/DL (14.0-18.0); Immature Granulocytes % 0.6 %; Immature Granulocytes Absolute 0.04 #; Lymphocytes # 1.5 10*3/uL (1.4-4.0); Lymphocytes % 22.1 % (21.2-54.2); Mean Corpuscular HGB Conc 30.8 GM/DL (32-36); Mean Corpuscular Hemoglobin 27 PG (27-34); Mean Corpuscular Volume 88.7 FL (87-102); Mean Platelet Volume 10.1 FL (9.6-12.0); Monocytes # 0.6 10*3/uL (0.11-0.8); Neutrophils # 4.3 10*3/uL (1.4-7.4); Neutrophils % 62.2 % (38.7-73.9); Platelet Count 172 T/CUMM (130-400); Red Blood Count 3.62 MC/CUMM (3.8-5.5); Red Cell Distribution Width 16.6 % (9.3-17.3); White Blood Count 6.9 T/CUMM (4-12)
[2018-01-25 05:29] LABS: Calcium 8.6 MG/DL (8.5-10.1); Osmolality,Calculated 282.8 MOS/KG (273-304); Potassium 4.4 MMOL/L (3.5-5.1); Risk Ratio 6.58; VLDL CHOLESTEROL 47.4 MG/DL
[2018-01-25] MEDS: CETIRIZINE 10 MG TABLET PO SCH (08:18)
[2018-01-25] MEDS: PANTOPRAZOLE 40 MG TABLET PO SCH (08:18)
[2018-01-25] MEDS: FAMOTIDINE 20 MG TABLET PO SCH ×2 (08:19→21:24)
[2018-01-25] MEDS ORDERED: HALOPERIDOL 5 MG/ML AMP IM ONE ×2 (08:30→12:27)
[2018-01-25] MEDS ORDERED: HALOPERIDOL 5 MG/ML AMP IV ONE (08:30)
[2018-01-25] MEDS: INSULIN LISPRO 100 UNIT/ML SUBCUT SCH ×4 (09:20→21:26)
[2018-01-25] MEDS: FLUTICASONE 50 MCG NASAL SPRAY 16 GM BOTTLE BOTH NARES SCH (16:17)
[2018-01-25] MEDS: ATORVASTATIN 10 MG TABLET PO SCH (21:24)
[2018-01-25] MEDS: QUEtiapine 25 MG TABLET PO SCH (21:24)
[2018-01-25] MEDS: MONTELUKAST 10 MG TABLET PO SCH (21:24)
[2018-01-25] MEDS: ENOXAPARIN 30 MG/0.3 ML SYRINGE SUBCUT SCH (21:24)
[2018-01-25] MEDS: levETIRAcetam 500 MG TABLET PO SCH (21:24)
[2018-01-25] MEDS ORDERED: ZALEPLON 5 MG CAPSULE PO ONE (21:30)
[2018-01-25] MEDS: ZINC OXIDE PASTE 113 GM TUBE TOP SCH (21:35)
[2018-01-26] MEDS: FLUTICASONE 50 MCG NASAL SPRAY 16 GM BOTTLE BOTH NARES SCH (10:12)
[2018-01-26] MEDS: ATORVASTATIN 10 MG TABLET PO SCH (10:12)
[2018-01-26] MEDS: levETIRAcetam 500 MG TABLET PO SCH (10:12)
[2018-01-26] MEDS: PANTOPRAZOLE 40 MG TABLET PO SCH (10:13)
[2018-01-26] MEDS: INSULIN LISPRO 100 UNIT/ML SUBCUT SCH ×2 (10:13→14:55)
[2018-01-26] MEDS: CETIRIZINE 10 MG TABLET PO SCH (10:13)
[2018-01-26] MEDS: FAMOTIDINE 20 MG TABLET PO SCH (10:13)
[2018-01-26] MEDS: ZINC OXIDE PASTE 113 GM TUBE TOP SCH (10:19)
[2018-01-26 14:51] VITALS: BP 110/51
== END 2018-01-26 14:43 | disposition home health service (06) ==
LOC: N.EDINP 08:36 → N.ED 08:36 → SUATTDRO 11:47 → N.EDINP 13:15 → N.TELEN 13:22
PROVIDERS: ADMIT Internal Medicine Infectious Disease; ATTEND Hospitalist

== ENCOUNTER 2018-02-20 16:01 | Inpatient (IN) ==
[2018-02-20 16:53] LABS: INR 1.3; PT Patient Result 13.9 SECS
[2018-02-20 16:54] LABS: Basophils % 0.2 % (0.0-0.8); Eosinophils # 0.2 10*3/uL (0.0-0.87); Eosinophils % 2.4 % (0.00-10.9); Hematocrit 26.4 VOL% (42.0-52.0); Hemoglobin 8.2 GM/DL (14.0-18.0); Immature Granulocytes % 0.6 %; Immature Granulocytes Absolute 0.06 #; Lymphocytes % 10.3 % (21.2-54.2); Mean Corpuscular HGB Conc 31.1 GM/DL (32-36); Mean Corpuscular Hemoglobin 27 PG (27-34); Mean Platelet Volume 10.4 FL (9.6-12.0); Monocytes # 0.8 10*3/uL (0.11-0.8); Monocytes % 8.2 % (1.7-12.7); Neutrophils # 7.9 10*3/uL (1.4-7.4); Neutrophils % 78.3 % (38.7-73.9); Platelet Count 211 T/CUMM (130-400); Red Blood Count 3.07 MC/CUMM (3.8-5.5); Red Cell Distribution Width 16.9 % (9.3-17.3)
[2018-02-20 16:59] LABS: Alanine Aminotransferase 11 U/L (16-61); Albumin 2.2 G/DL (3.4-5.0); Alkaline Phosphatase 87 U/L (45-117); Aspartate Amino Transferase 12 U/L (0-37); Bilirubin,Total < 0.39 MG/DL (0.2-1.0); Blood Urea Nitrogen 19 MG/DL (7-18); Calcium 6.5 MG/DL (8.5-10.1); Glucose 178 MG/DL (74-106); Potassium 3.8 MMOL/L (3.5-5.1); Sodium 136 MMOL/L (136-145); Total Protein 7.4 G/DL (6.4-8.3)
[2018-02-20] MEDS ORDERED: MAGNESIUM SULF RIDER 2 GM in PREMIX 1 EACH IV STA (18:06)
[2018-02-20] MEDS ORDERED: CEFTAROLINE 600 MG in SODIUM CHLORIDE 0.9% 100 ML IV STA (18:18)
[2018-02-20] MEDS ORDERED: CEFTAROLINE 600 MG VIAL IV ONE (18:26)
[2018-02-20] MEDS ORDERED: DEXTROSE 50% 25 GM/50 ML VIAL IV PRN ×2 (18:51)
[2018-02-20] MEDS ORDERED: ONDANSETRON 4 MG/2 ML VIAL IV PRN (18:51)
[2018-02-20] MEDS ORDERED: GLUCAGON 1 MG VIAL IM PRN ×2 (18:51)
[2018-02-20] MEDS ORDERED: MAGNESIUM SULF RIDER 50 ML IV ONE (19:45)
[2018-02-20] MEDS: INSULIN GLARGINE 100 UNIT/ML SUBCUT SCH (21:46)
[2018-02-20] MEDS: ENOXAPARIN 40 MG/0.4 ML SYRINGE SUBCUT SCH (21:46)
[2018-02-20] MEDS: INSULIN REGULAR 100 UNIT/ML SUBCUT SCH (21:47)
[2018-02-20] MEDS: levETIRAcetam 500 MG TABLET PO SCH (22:01)
[2018-02-20] MEDS: MONTELUKAST 10 MG TABLET PO SCH (22:01)
[2018-02-20] MEDS: FAMOTIDINE 20 MG TABLET PO SCH (22:01)
[2018-02-20] MEDS: QUEtiapine 25 MG TABLET PO SCH (22:01)
[2018-02-20] MEDS: GABAPENTIN 600 MG TABLET PO SCH (22:01)
[2018-02-21] MEDS: CEFTAROLINE 600 MG in SODIUM CHLORIDE 0.9% 100 ML IV SCH ×2 (05:21→17:35)
[2018-02-21 06:15] LABS: Basophils % 0.2 % (0.0-0.8); Eosinophils # 0.2 10*3/uL (0.0-0.87); Eosinophils % 1.9 % (0.00-10.9); Hematocrit 25.8 VOL% (42.0-52.0); Hemoglobin 8.3 GM/DL (14.0-18.0); Immature Granulocytes % 0.6 %; Immature Granulocytes Absolute 0.05 #; Lymphocytes # 0.9 10*3/uL (1.4-4.0); Lymphocytes % 9.5 % (21.2-54.2); Mean Corpuscular HGB Conc 32.2 GM/DL (32-36); Mean Corpuscular Hemoglobin 27 PG (27-34); Mean Corpuscular Volume 83.5 FL (87-102); Mean Platelet Volume 10.4 FL (9.6-12.0); Monocytes # 0.7 10*3/uL (0.11-0.8); Monocytes % 7.8 % (1.7-12.7); Neutrophils # 7.1 10*3/uL (1.4-7.4); Platelet Count 214 T/CUMM (130-400); Red Blood Count 3.09 MC/CUMM (3.8-5.5); Red Cell Distribution Width 16.7 % (9.3-17.3); White Blood Count 8.9 T/CUMM (4-12)
[2018-02-21 06:25] LABS: INR 1.2; PT Patient Result 12.8 SECS
[2018-02-21 06:53] LABS: Albumin 2.1 G/DL (3.4-5.0); Calcium 6.6 MG/DL (8.5-10.1); Osmolality,Calculated 275.4 MOS/KG (273-304); Potassium 3.7 MMOL/L (3.5-5.1); Total Protein 6.5 G/DL (6.4-8.3)
[2018-02-21] MEDS: INSULIN REGULAR 100 UNIT/ML SUBCUT SCH ×4 (08:21→20:59)
[2018-02-21] MEDS ORDERED: PANTOPRAZOLE 40 MG TABLET PO SCH (09:00)
[2018-02-21] MEDS: GABAPENTIN 600 MG TABLET PO SCH ×3 (09:31→20:29)
[2018-02-21] MEDS: CETIRIZINE 10 MG TABLET PO SCH (09:31)
[2018-02-21] MEDS: CLOPIDOGREL 75 MG TABLET PO SCH (09:31)
[2018-02-21] MEDS: FLUTICASONE 50 MCG NASAL SPRAY 16 GM BOTTLE BOTH NARES SCH (09:31)
[2018-02-21] MEDS: FAMOTIDINE 20 MG TABLET PO SCH ×2 (09:31→20:29)
[2018-02-21] MEDS: levETIRAcetam 500 MG TABLET PO SCH ×2 (09:31→20:29)
[2018-02-21] MEDS: DULoxetine 30 MG CAPSULE PO SCH (09:31)
[2018-02-21] MEDS: ATORVASTATIN 10 MG TABLET PO SCH (09:31)
[2018-02-21] MEDS: methIMAzole 10 MG TABLET PO SCH (09:32)
[2018-02-21] MEDS: SODIUM HYPOCHLORITE 0.25% IRRIG 473 ML BOTTLE TOP SCH (09:32)
[2018-02-21] MEDS: INSULIN LISPRO PROTAMINE/LISPRO 75/25 100 UNIT/ML SUBCUT SCH ×3 (09:33→17:00)
[2018-02-21] MEDS: PIPERACILLIN/TAZOBACTAM 3,375 MG in SODIUM CHLORIDE 0.9% 100 ML IV SCH ×2 (10:53→18:40)
[2018-02-21] MEDS: PANTOPRAZOLE 40 MG TABLET PO SCH (12:20)
[2018-02-21] MEDS: VANCOMYCIN INJ 1,500 MG in SODIUM CHLORIDE 0.9% 500 ML IV SCH ×2 (15:21→22:41)
[2018-02-21] MEDS: IRON (CARBONYL)/VIT C/B12/FA TABLET PO SCH (17:12)
[2018-02-21] MEDS: sitaGLIPtin 100 MG TABLET PO SCH (17:12)
[2018-02-21] MEDS ORDERED: Aflibercept [Eylea] 2 MG IO SCH (17:30)
[2018-02-21] MEDS ORDERED: WARFARIN 2.5 MG TABLET PO SCH (18:00)
[2018-02-21] MEDS: QUEtiapine 25 MG TABLET PO SCH (20:29)
[2018-02-21] MEDS: MONTELUKAST 10 MG TABLET PO SCH (20:29)
[2018-02-21] MEDS: ENOXAPARIN 40 MG/0.4 ML SYRINGE SUBCUT SCH (20:30)
[2018-02-21] MEDS: INSULIN GLARGINE 100 UNIT/ML SUBCUT SCH (20:57)
[2018-02-22] MEDS: PIPERACILLIN/TAZOBACTAM 3,375 MG in SODIUM CHLORIDE 0.9% 100 ML IV SCH ×3 (02:54→20:35)
[2018-02-22] MEDS: CEFTAROLINE 600 MG in SODIUM CHLORIDE 0.9% 100 ML IV SCH (06:55)
[2018-02-22 07:42] LABS: INR 1.2; PT Patient Result 12.2 SECS
[2018-02-22] MEDS: INSULIN REGULAR 100 UNIT/ML SUBCUT SCH ×4 (08:08→21:56)
[2018-02-22] MEDS: INSULIN LISPRO PROTAMINE/LISPRO 75/25 100 UNIT/ML SUBCUT SCH ×3 (08:08→18:15)
[2018-02-22] MEDS: levETIRAcetam 500 MG TABLET PO SCH ×2 (08:58→20:36)
[2018-02-22] MEDS: CLOPIDOGREL 75 MG TABLET PO SCH (08:58)
[2018-02-22] MEDS: CETIRIZINE 10 MG TABLET PO SCH (08:58)
[2018-02-22] MEDS: DULoxetine 30 MG CAPSULE PO SCH (08:58)
[2018-02-22] MEDS: methIMAzole 10 MG TABLET PO SCH (08:59)
[2018-02-22] MEDS: GABAPENTIN 600 MG TABLET PO SCH ×3 (08:59→20:39)
[2018-02-22] MEDS: ATORVASTATIN 10 MG TABLET PO SCH (08:59)
[2018-02-22] MEDS: FLUTICASONE 50 MCG NASAL SPRAY 16 GM BOTTLE BOTH NARES SCH (08:59)
[2018-02-22] MEDS: FAMOTIDINE 20 MG TABLET PO SCH ×2 (08:59→20:36)
[2018-02-22] MEDS: SODIUM HYPOCHLORITE 0.25% IRRIG 473 ML BOTTLE TOP SCH (09:00)
[2018-02-22] MEDS ORDERED: WARFARIN 5 MG TABLET PO SCH (09:00)
[2018-02-22] MEDS: VANCOMYCIN INJ 1,500 MG in SODIUM CHLORIDE 0.9% 500 ML IV SCH (12:45)
[2018-02-22] MEDS: PANTOPRAZOLE 40 MG TABLET PO SCH (12:46)
[2018-02-22] MEDS ORDERED: GENTAMICIN INJ 200 MG in SODIUM CHLORIDE 0.9% 100 ML IV SCH (15:00)
[2018-02-22] MEDS: sitaGLIPtin 100 MG TABLET PO SCH (16:05)
[2018-02-22] MEDS: IRON (CARBONYL)/VIT C/B12/FA TABLET PO SCH (16:06)
[2018-02-22] MEDS: WARFARIN 1 MG TABLET PO SCH (18:21)
[2018-02-22] MEDS: LEVOFLOXACIN INJ 750 MG in PREMIX 1 EACH IV SCH (18:21)
[2018-02-22] MEDS ORDERED: VANCOMYCIN INJ 1,500 MG in SODIUM CHLORIDE 0.9% 250 ML IV SCH (20:00)
[2018-02-22] MEDS: MONTELUKAST 10 MG TABLET PO SCH (20:36)
[2018-02-22] MEDS: QUEtiapine 25 MG TABLET PO SCH (20:36)
[2018-02-22] MEDS: ENOXAPARIN 40 MG/0.4 ML SYRINGE SUBCUT SCH (20:36)
[2018-02-22] MEDS: INSULIN GLARGINE 100 UNIT/ML SUBCUT SCH (21:52)
[2018-02-23] MEDS: PIPERACILLIN/TAZOBACTAM 3,375 MG in SODIUM CHLORIDE 0.9% 100 ML IV SCH ×3 (03:25→18:44)
[2018-02-23 05:56] LABS: Basophils % 0.1 % (0.0-0.8); Eosinophils # 0.3 10*3/uL (0.0-0.87); Eosinophils % 3.1 % (0.00-10.9); Hematocrit 22.3 VOL% (42.0-52.0); Hemoglobin 7.1 GM/DL (14.0-18.0); Immature Granulocytes % 0.5 %; Immature Granulocytes Absolute 0.04 #; Lymphocytes # 0.9 10*3/uL (1.4-4.0); Lymphocytes % 10.2 % (21.2-54.2); Mean Corpuscular HGB Conc 31.8 GM/DL (32-36); Mean Corpuscular Hemoglobin 27 PG (27-34); Mean Corpuscular Volume 84.2 FL (87-102); Mean Platelet Volume 9.8 FL (9.6-12.0); Monocytes # 0.8 10*3/uL (0.11-0.8); Monocytes % 8.8 % (1.7-12.7); Neutrophils # 6.6 10*3/uL (1.4-7.4); Neutrophils % 77.3 % (38.7-73.9); Platelet Count 206 T/CUMM (130-400); Red Blood Count 2.65 MC/CUMM (3.8-5.5); White Blood Count 8.6 T/CUMM (4-12)
[2018-02-23 06:05] LABS: INR 1.4; PT Patient Result 14.3 SECS
[2018-02-23 06:15] LABS: Calcium 6.1 MG/DL (8.5-10.1); Osmolality,Calculated 275.4 MOS/KG (273-304); Potassium 3.7 MMOL/L (3.5-5.1)
[2018-02-23] MEDS: INSULIN REGULAR 100 UNIT/ML SUBCUT SCH ×4 (07:53→21:57)
[2018-02-23] MEDS: INSULIN LISPRO PROTAMINE/LISPRO 75/25 100 UNIT/ML SUBCUT SCH ×3 (07:55→16:44)
[2018-02-23] MEDS ORDERED: SODIUM CHLORIDE 0.9% 1,000 ML IV PRN (08:53)
[2018-02-23] MEDS ORDERED: MAGNESIUM SULF RIDER 2 GM in PREMIX 1 EACH IV ONE (09:03)
[2018-02-23] MEDS: FAMOTIDINE 20 MG TABLET PO SCH ×2 (09:48→21:56)
[2018-02-23] MEDS: ATORVASTATIN 10 MG TABLET PO SCH (09:49)
[2018-02-23] MEDS: GABAPENTIN 600 MG TABLET PO SCH ×3 (09:49→21:56)
[2018-02-23] MEDS: methIMAzole 10 MG TABLET PO SCH (09:49)
[2018-02-23] MEDS: DULoxetine 30 MG CAPSULE PO SCH (09:49)
[2018-02-23] MEDS: levETIRAcetam 500 MG TABLET PO SCH ×2 (09:49→21:55)
[2018-02-23] MEDS: CLOPIDOGREL 75 MG TABLET PO SCH (09:50)
[2018-02-23] MEDS: CETIRIZINE 10 MG TABLET PO SCH (09:50)
[2018-02-23] MEDS: FLUTICASONE 50 MCG NASAL SPRAY 16 GM BOTTLE BOTH NARES SCH (09:54)
[2018-02-23] MEDS: SODIUM HYPOCHLORITE 0.25% IRRIG 473 ML BOTTLE TOP SCH (09:54)
[2018-02-23] MEDS: PANTOPRAZOLE 40 MG TABLET PO SCH (11:57)
[2018-02-23] MEDS: IRON (CARBONYL)/VIT C/B12/FA TABLET PO SCH (17:12)
[2018-02-23] MEDS: LEVOFLOXACIN INJ 750 MG in PREMIX 1 EACH IV SCH (17:14)
[2018-02-23] MEDS: WARFARIN 1 MG TABLET PO SCH (17:14)
[2018-02-23 17:50] LABS: Hematocrit 30.2 VOL% (42.0-52.0); Hemoglobin 9.3 GM/DL (14.0-18.0)
[2018-02-23] MEDS: ENOXAPARIN 40 MG/0.4 ML SYRINGE SUBCUT SCH (21:55)
[2018-02-23] MEDS: MONTELUKAST 10 MG TABLET PO SCH (21:56)
[2018-02-23] MEDS: QUEtiapine 25 MG TABLET PO SCH (21:56)
[2018-02-23] MEDS: VANCOMYCIN INJ 1,500 MG in SODIUM CHLORIDE 0.9% 500 ML IV SCH (23:40)
[2018-02-24] MEDS: PIPERACILLIN/TAZOBACTAM 3,375 MG in SODIUM CHLORIDE 0.9% 100 ML IV SCH ×2 (02:23→09:29)
[2018-02-24 04:52] LABS: Basophils % 0.3 % (0.0-0.8); Eosinophils # 0.3 10*3/uL (0.0-0.87); Eosinophils % 3.5 % (0.00-10.9); Hematocrit 28.4 VOL% (42.0-52.0); Immature Granulocytes % 0.7 %; Immature Granulocytes Absolute 0.05 #; Lymphocytes # 0.8 10*3/uL (1.4-4.0); Lymphocytes % 10.9 % (21.2-54.2); Mean Corpuscular HGB Conc 31.7 GM/DL (32-36); Mean Corpuscular Hemoglobin 27 PG (27-34); Mean Corpuscular Volume 84.8 FL (87-102); Mean Platelet Volume 10.1 FL (9.6-12.0); Monocytes # 0.7 10*3/uL (0.11-0.8); Monocytes % 9.1 % (1.7-12.7); Neutrophils # 5.7 10*3/uL (1.4-7.4); Neutrophils % 75.5 % (38.7-73.9); Platelet Count 203 T/CUMM (130-400); Red Blood Count 3.35 MC/CUMM (3.8-5.5); Red Cell Distribution Width 16.4 % (9.3-17.3); White Blood Count 7.5 T/CUMM (4-12)
[2018-02-24 04:56] LABS: INR 1.3; PT Patient Result 13.7 SECS
[2018-02-24 05:16] LABS: Calcium 6.9 MG/DL (8.5-10.1); Osmolality,Calculated 273.5 MOS/KG (273-304)
[2018-02-24] MEDS: INSULIN REGULAR 100 UNIT/ML SUBCUT SCH ×4 (09:27→20:50)
[2018-02-24] MEDS: INSULIN LISPRO PROTAMINE/LISPRO 75/25 100 UNIT/ML SUBCUT SCH ×3 (09:28→17:48)
[2018-02-24] MEDS: levETIRAcetam 500 MG TABLET PO SCH ×2 (09:34→20:41)
[2018-02-24] MEDS: methIMAzole 10 MG TABLET PO SCH (09:34)
[2018-02-24] MEDS: ATORVASTATIN 10 MG TABLET PO SCH (09:34)
[2018-02-24] MEDS: GABAPENTIN 600 MG TABLET PO SCH ×3 (09:35→20:40)
[2018-02-24] MEDS: CLOPIDOGREL 75 MG TABLET PO SCH (09:35)
[2018-02-24] MEDS: DULoxetine 30 MG CAPSULE PO SCH (09:35)
[2018-02-24] MEDS: FLUTICASONE 50 MCG NASAL SPRAY 16 GM BOTTLE BOTH NARES SCH (09:35)
[2018-02-24] MEDS: FAMOTIDINE 20 MG TABLET PO SCH ×2 (09:35→20:41)
[2018-02-24] MEDS: CETIRIZINE 10 MG TABLET PO SCH (09:35)
[2018-02-24] MEDS: PANTOPRAZOLE 40 MG TABLET PO SCH (16:17)
[2018-02-24] MEDS: VANCOMYCIN INJ 1,500 MG in SODIUM CHLORIDE 0.9% 500 ML IV SCH (16:18)
[2018-02-24] MEDS: SODIUM HYPOCHLORITE 0.25% IRRIG 473 ML BOTTLE TOP SCH (16:18)
[2018-02-24] MEDS: IRON (CARBONYL)/VIT C/B12/FA TABLET PO SCH (17:38)
[2018-02-24] MEDS: WARFARIN 1 MG TABLET PO SCH (17:48)
[2018-02-24] MEDS: ENOXAPARIN 40 MG/0.4 ML SYRINGE SUBCUT SCH (20:40)
[2018-02-24] MEDS: LEVOFLOXACIN INJ 750 MG in PREMIX 1 EACH IV SCH (20:41)
[2018-02-24] MEDS: QUEtiapine 25 MG TABLET PO SCH (20:41)
[2018-02-24] MEDS: MONTELUKAST 10 MG TABLET PO SCH (20:41)
[2018-02-25] MEDS: PIPERACILLIN/TAZOBACTAM 3,375 MG in SODIUM CHLORIDE 0.9% 100 ML IV SCH ×3 (00:45→16:37)
[2018-02-25] MEDS: VANCOMYCIN INJ 1,500 MG in SODIUM CHLORIDE 0.9% 500 ML IV SCH ×2 (04:22→16:37)
[2018-02-25 06:03] LABS: Basophils % 0.5 % (0.0-0.8); Eosinophils # 0.3 10*3/uL (0.0-0.87); Eosinophils % 3.8 % (0.00-10.9); Hematocrit 29.1 VOL% (42.0-52.0); Hemoglobin 9.1 GM/DL (14.0-18.0); Immature Granulocytes % 0.6 %; Immature Granulocytes Absolute 0.04 #; Lymphocytes # 0.8 10*3/uL (1.4-4.0); Lymphocytes % 11.8 % (21.2-54.2); Mean Corpuscular HGB Conc 31.3 GM/DL (32-36); Mean Corpuscular Hemoglobin 27 PG (27-34); Mean Corpuscular Volume 86.4 FL (87-102); Monocytes # 0.6 10*3/uL (0.11-0.8); Monocytes % 8.5 % (1.7-12.7); Neutrophils % 74.8 % (38.7-73.9); Platelet Count 215 T/CUMM (130-400); Red Blood Count 3.37 MC/CUMM (3.8-5.5); Red Cell Distribution Width 16.5 % (9.3-17.3); White Blood Count 6.6 T/CUMM (4-12)
[2018-02-25 06:09] LABS: INR 1.3
[2018-02-25 06:28] LABS: Calcium 7.1 MG/DL (8.5-10.1); Osmolality,Calculated 273.7 MOS/KG (273-304); Potassium 3.8 MMOL/L (3.5-5.1)
[2018-02-25] MEDS: INSULIN REGULAR 100 UNIT/ML SUBCUT SCH ×3 (07:24→17:12)
[2018-02-25] MEDS: INSULIN LISPRO PROTAMINE/LISPRO 75/25 100 UNIT/ML SUBCUT SCH ×3 (08:57→16:37)
[2018-02-25] MEDS: levETIRAcetam 500 MG TABLET PO SCH (08:59)
[2018-02-25] MEDS: GABAPENTIN 600 MG TABLET PO SCH ×2 (08:59→17:12)
[2018-02-25] MEDS: ATORVASTATIN 10 MG TABLET PO SCH (08:59)
[2018-02-25] MEDS: CLOPIDOGREL 75 MG TABLET PO SCH (08:59)
[2018-02-25] MEDS: CETIRIZINE 10 MG TABLET PO SCH (08:59)
[2018-02-25] MEDS: methIMAzole 10 MG TABLET PO SCH (08:59)
[2018-02-25] MEDS: FAMOTIDINE 20 MG TABLET PO SCH (08:59)
[2018-02-25] MEDS: DULoxetine 30 MG CAPSULE PO SCH (09:00)
[2018-02-25] MEDS: FLUTICASONE 50 MCG NASAL SPRAY 16 GM BOTTLE BOTH NARES SCH (09:00)
[2018-02-25] MEDS: SODIUM HYPOCHLORITE 0.25% IRRIG 473 ML BOTTLE TOP SCH (09:01)
[2018-02-25] MEDS ORDERED: MAGNESIUM SULF RIDER 2 GM in PREMIX 1 EACH IV PRN (09:55)
[2018-02-25] MEDS ORDERED: MAGNESIUM SULF RIDER 4 GM in PREMIX 1 EACH IV PRN (09:55)
[2018-02-25 11:56] VITALS: BP 140/62
[2018-02-25] MEDS: PANTOPRAZOLE 40 MG TABLET PO SCH (13:04)
[2018-02-25] MEDS: IRON (CARBONYL)/VIT C/B12/FA TABLET PO SCH (17:12)
[2018-02-25] MEDS ORDERED: WARFARIN 4 MG TABLET PO SCH (18:00)
[2018-03-02] MEDS ORDERED: KETOROLAC 60 MG/2 ML VIAL IM SCH (09:00)
[2018-03-02] MEDS ORDERED: ORPHENADRINE 60 MG/2 ML VIAL IM SCH (09:00)
== END 2018-02-25 18:45 | disposition home health service (06) | DRG 638 ==
LOC: EDBD → EDUNIT# → N.ED 16:01 → N.EDINP 18:28 → SUATTDRO 18:28 → N.5E 19:19
PROVIDERS: ADMIT Internal Medicine; ATTEND Internal Medicine

== ENCOUNTER 2018-05-12 08:31 | Inpatient (IN) ==
[2018-05-12] MEDS ORDERED: SODIUM CHLORIDE 0.9% 1,000 ML IV STA (08:58)
[2018-05-12] MEDS ORDERED: cefTRIAXone 1,000 MG in SODIUM CHLORIDE 0.9% 100 ML IV STA (09:02)
[2018-05-12] MEDS ORDERED: ALBUTEROL/IPRATROPIUM 3 ML NEB RESP TX STA (09:16)
[2018-05-12] MEDS ORDERED: cefTRIAXone 1,000 MG in SYRINGE 1 EACH IV STA (09:23)
[2018-05-12 09:34] LABS: Basophils % 0.1 % (0.0-0.8); Hemoglobin 8.9 GM/DL (14.0-18.0); Immature Granulocytes % 0.5 %; Immature Granulocytes Absolute 0.05 #; Lymphocytes # 0.6 10*3/uL (1.4-4.0); Lymphocytes % 5.6 % (21.2-54.2); Mean Corpuscular HGB Conc 30.7 GM/DL (32-36); Mean Corpuscular Hemoglobin 28 PG (27-34); Mean Corpuscular Volume 90.9 FL (87-102); Mean Platelet Volume 10.4 FL (9.6-12.0); Monocytes # 0.5 10*3/uL (0.11-0.8); Monocytes % 4.5 % (1.7-12.7); Neutrophils # 9.6 10*3/uL (1.4-7.4); Neutrophils % 89.3 % (38.7-73.9); Platelet Count 233 T/CUMM (130-400); Red Blood Count 3.19 MC/CUMM (3.8-5.5); Red Cell Distribution Width 20.3 % (9.3-17.3); White Blood Count 10.8 T/CUMM (4-12)
[2018-05-12 09:51] LABS: Albumin 2.4 G/DL (3.4-5.0); Bilirubin,Total 0.7 MG/DL (0.2-1.0); Calcium 7.1 MG/DL (8.5-10.1); Osmolality,Calculated 279.5 MOS/KG (273-304); Potassium 4.5 MMOL/L (3.5-5.1); Total Protein 8.4 G/DL (6.4-8.3)
[2018-05-12 09:54] LABS: ABG Base Excess -4.3 MMOL/L (-2.5-2.5); ABG HCO3 20.9 MMOL/L (20-26); ABG Oxygen Saturation 97.1 % (95-100); ABG PCO2 44.3 MM HG (35-48); ABG PH 7.304 (7.35-7.45); ABG TCO2 20.4 MMOL/L (23-27)
[2018-05-12 09:55] LABS: Band Neutrophils 24 % (0-10); Hypochromasia 1+; Lymphocytes 8 % (20-55); Platelet Estimate Adequate; Segmented Neutrophils 64 % (50-85); Total Cells Counted 100
[2018-05-12 10:05] LABS: Apearance,Urine CLOUDY (Clear); Bacteria,Urine Many /HPF (Few); Blood, Urine Large mg/dL (Negative); Glucose,Urine (UA) Negative (Negative); Ketones,Urine Negative (Negative); Nitrite,Urine Negative (Negative); Protein,Urine 100 MG/DL; RBC,Urine 62 /HPF (0-4); Urine Color Yellow (Yellow); Urine Specific Gravity 1.024 (1.001-1.035); Urine Urobilinogen < 2.0 EU/DL (0.2-1.0); WBC,Urine 1418 /HPF (0-6)
[2018-05-12 10:06] LABS: Bilirubin,Urine Small mg/dL (Negative)
[2018-05-12 10:37] LABS: Sedimentation Rate-Westergren 107 MM/HR (0-20)
[2018-05-12] MEDS ORDERED: ENOXAPARIN 30 MG/0.3 ML SYRINGE SUBCUT SCH (11:00)
[2018-05-12] MEDS ORDERED: SODIUM CHLORIDE 0.9% 1,000 ML IV SCH (11:00)
[2018-05-12] MEDS ORDERED: DEXTROSE 50% 25 GM/50 ML VIAL IV PRN (11:05)
[2018-05-12] MEDS ORDERED: GLUCAGON 1 MG VIAL IM PRN (11:05)
[2018-05-12] MEDS ORDERED: INSULIN REGULAR 100 UNIT/ML SUBCUT SCH ×2 (11:30→12:00)
[2018-05-12] MEDS ORDERED: LEVOFLOXACIN INJ 500 MG in PREMIX 1 EACH IV ONE (11:30)
[2018-05-12] MEDS ORDERED: LEVOFLOXACIN INJ 100 ML IV ONE (12:03)
[2018-05-12] MEDS ORDERED: AMIODARONE INJ 450 MG in DEXTROSE 5% 241 ML IV SCH ×2 (12:30→18:30)
[2018-05-12] MEDS ORDERED: AMIODARONE INJ 150 MG in DEXTROSE 5% 100 ML IV ONE (12:30)
[2018-05-12 13:06] VITALS: BP 80/61
[2018-05-12 13:42] LABS: INR 1.5; PT Patient Result 16.1 SECS
[2018-05-12 13:47] LABS: Lactic Acid 8.1 MMOL/L (0.4-2.0)
[2018-05-12] MEDS ORDERED: ALBUTEROL/IPRATROPIUM 3 ML NEB RESP TX SCH (15:00)
[2018-05-12] MEDS ORDERED: PHENYTOIN ER 100 MG CAPSULE PO SCH (15:00)
[2018-05-12] MEDS ORDERED: GABAPENTIN 600 MG TABLET PO SCH (15:00)
[2018-05-12] MEDS ORDERED: QUEtiapine 25 MG TABLET PO SCH (21:00)
[2018-05-12] MEDS ORDERED: FAMOTIDINE 20 MG TABLET PO SCH (21:00)
[2018-05-12] MEDS ORDERED: MONTELUKAST 10 MG TABLET PO SCH (21:00)
[2018-05-13] MEDS ORDERED: ATORVASTATIN 10 MG TABLET PO SCH (09:00)
[2018-05-13] MEDS ORDERED: DULoxetine 30 MG CAPSULE PO SCH (09:00)
[2018-05-13] MEDS ORDERED: cefTRIAXone 1,000 MG in SYRINGE 1 EACH IV SCH (09:00)
[2018-05-13] MEDS ORDERED: TAMSULOSIN 0.4 MG CAPSULE PO SCH (09:00)
[2018-05-13] MEDS ORDERED: LEVOFLOXACIN INJ 250 MG in PREMIX 1 EACH IV SCH (10:00)
== END 2018-05-12 13:33 | disposition expired | DRG 177 ==
LOC: EDUNIT# → N.ED 08:31 → N.EDINP 10:55 → N.CC 11:34
PROVIDERS: ADMIT Internal Medicine Cardiovascular Disease; ATTEND Internal Medicine Cardiovascular Disease